=== PATIENT | female | born 1950 | race African-American/Black ===

== ENCOUNTER 2017-03-08 17:19 | Emergency (ER) | payer MEDICARE, MEDICAID ==
[~2017-03-08] VITALS: Ht 160 cm; Wt 68.0 kg
[~2017-03-08 17:19] MED LIST: AGGR PO; AMOX-73; ATEN50TA PO; ATOR10TA69 PO; BENA20TA3 PO; MAX PO; NIFE60TA7; PREG75CA PO
[2017-03-08] MEDS ORDERED: PREG50CA PO (17:26)
[2017-03-08] MEDS ORDERED: SULF1TAB48 PO (17:26)
[2017-03-08 20:34] LABS: BASOPHILS % 0.5 % (0.0-2.0); EOSINOPHILS % 3.4 % (0.0-5.0); HEMATOCRIT. 33.4 % (36.0-48.0); HEMOGLOBIN. 11.1 g/dL (12.0-16.0); LYMPHOCYTES % 23.9 % (20.0-50.0); MEAN CORPUSCULAR HEMOGLOBIN 30.9 pg (28.0-32.0); MEAN CORPUSCULAR VOLUME 92.8 fL (81.0-99.0); MEAN PLATELET VOLUME 8.4 fl (7.4-10.4); MONOCYTES % 11.6 % (2.0-8.0); NEUTROPHILS % 60.6 % (40.0-76.0); PLATELET 159 x1000/uL (130-400); RED CELL DISTRIBUTION WIDTH 12.7 % (11.6-14.6)
[2017-03-08 20:40] LABS: PARTIAL THROMBOPLASTIN TIME 25.7 sec (24.0-34.0); PROTHROMBIN TIME 10.9 sec
[2017-03-08] MEDS ORDERED: POTASSIUM BICARB/CIT ACID 25 MEQ TABLET.EFF PO NR (21:30)
[2017-03-08] MEDS ORDERED: LEVOFLOXACIN 750MG PREMIX 150 ML IV NR (22:30)
[2017-03-08] MEDS ORDERED: SODIUM CHLORIDE 0.9% 1,000 ML IV ONE (22:30)
[2017-03-08] MEDS ORDERED: VANCOMYCIN 1 G PREMIX 200 ML IV NR (22:30)
[2017-03-08] MEDS ORDERED: POTASSIUM BICARB/CIT ACID 25 MEQ TABLET.EFF PO ONE (22:45)
[2017-03-09 00:15] VITALS: BP 102/66
== END 2017-03-09 02:29 | disposition home or self-care (01) ==
LOC: ER 17:19
DX: M21.612 Bunion of left foot (principal); L03.116 Cellulitis of left lower limb; N28.9 Disorder of kidney and ureter, unspecified; E86.0 Dehydration; E87.6 Hypokalemia; I10 Essential (primary) hypertension; Z79.82 Long term (current) use of aspirin
CPT/HCPCS: 36415; 73562; 73610; 73630; 80048; 83605; 85025; 85610; 85730; 87040; 87070; 87086; 87205; 93005; 93971; 96365; 96366; 96367; 99285; J1956; J3370; J7030

== ENCOUNTER 2018-03-25 19:15 | Emergency (ER) | payer MEDICARE, MEDICAID ==
[~2018-03-25] VITALS: Ht 167.6 cm; Wt 70.0 kg
[~2018-03-25 19:15] MED LIST changes: +BENA20TA10 PO; -BENA20TA3 PO; -NIFE60TA7; +NIFE60TA78; +PREG50CA PO; +SULF1TAB48 PO
[2018-03-25 21:35] VITALS: BP 117/72
== END 2018-03-25 23:19 | disposition home or self-care (01) ==
LOC: ER 23:17
DX: S80.11XA Contusion of right lower leg, initial encounter (principal); E78.00 Pure hypercholesterolemia, unspecified; I10 Essential (primary) hypertension; Z87.820 Personal history of traumatic brain injury; X58.XXXA Exposure to other specified factors, initial encounter; Y93.89 Activity, other specified; Y92.89 Other specified places as the place of occurrence of the external cause; Y99.8 Other external cause status
CPT/HCPCS: 99282; 99283

== ENCOUNTER 2018-06-16 13:24 | Emergency (ER) | payer MEDICARE, MEDICAID ==
[~2018-06-16] VITALS: Ht 170.2 cm; Wt 61.0 kg
[2018-06-16 15:45] LABS: BASOPHILS % 0.6 % (0.0-2.0); EOSINOPHILS % 4.5 % (0.0-5.0); MEAN CORPUSCULAR HEMOGLOBIN 30.8 pg (28.0-32.0); MEAN PLATELET VOLUME 8.7 fl (7.4-10.4); NEUTROPHILS % 54.9 % (40.0-76.0); PLATELET 178 x1000/uL (130-400); RED BLOOD CELL COUNT 3.26 mill/uL (4.2-5.4)
[2018-06-16 16:16] LABS: CHLORIDE 107 mEq/L (98-107)
[2018-06-16 17:15] VITALS: BP 120/68
== END 2018-06-16 17:34 | disposition home or self-care (01) ==
LOC: ER 13:24
DX: L25.9 Unspecified contact dermatitis, unspecified cause (principal); D64.9 Anemia, unspecified; E87.6 Hypokalemia; I10 Essential (primary) hypertension; E78.00 Pure hypercholesterolemia, unspecified; Z86.73 Personal history of transient ischemic attack (TIA), and cerebral infarction without residual deficits; Z98.890 Other specified postprocedural states
CPT/HCPCS: 36415; 80053; 85025; 85651; 93971; 99285

== ENCOUNTER 2020-06-17 17:37 | Emergency (ER) | payer MEDICARE, MEDICAID ==
[~2020-06-17] VITALS: Ht 165.1 cm; Wt 68.0 kg
[2020-06-18 01:15] LABS: CHLORIDE 108 mEq/L (98-107)
[2020-06-18 02:35] VITALS: BP 143/71
[2020-06-18] MEDS ORDERED: POTASSIUM CHLORIDE 20MEQ TABLET SR PO SCH (02:45)
== END 2020-06-18 02:55 | disposition home or self-care (01) ==
LOC: ER 17:37
DX: R22.42 Localized swelling, mass and lump, left lower limb (principal); L03.116 Cellulitis of left lower limb; E78.00 Pure hypercholesterolemia, unspecified; I10 Essential (primary) hypertension; I69.351 Hemiplegia and hemiparesis following cerebral infarction affecting right dominant side; Z79.82 Long term (current) use of aspirin
CPT/HCPCS: 36415; 80053; 83880; 93005; 93971; 99285